=== PATIENT | female | born 1980 | race Two or more races ===

== ENCOUNTER 2019-05-19 23:55 | Inpatient (IN) | payer OTHER ==
[~2019-05-19] VITALS: Ht 152.4 cm; Wt 73.9 kg
[2019-05-20] MEDS ORDERED: RINGERS SOLUTION,LACTATED 1,000 ML IV PRN (01:04)
[2019-05-20] MEDS ORDERED: METOCLOPRAMIDE HCL 5 MG/ML 2 ML VIAL IVP PRN (01:15)
[2019-05-20] MEDS ORDERED: CITRIC ACID/SODIUM CITRATE 30 ML SOLUTION UDCUP PO PRN (01:15)
[2019-05-20] MEDS ORDERED: BETAMETHASONE SOLUSPAN 6 MG/ML 5 ML VIAL IM ONE ×2 (01:30→14:00)
[2019-05-20] MEDS: RINGERS SOLUTION,LACTATED 1,000 ML IV SCH ×6 (01:35→21:27)
[2019-05-20 01:48] VITALS: BP 103/61
[2019-05-20] MEDS: CLINDAMYCIN 900 MG/D5% WATER 50 ML IV SCH ×3 (02:01→17:59)
[2019-05-20 02:14] LABS: BASOPHILS % (AUTO) 0.5 % (0.0-2.0); EOSINOPHILS % (AUTO) 0.7 % (1.0-6.0); HEMATOCRIT 36.2 % (36-46); HEMOGLOBIN 12.4 g/dL (12.0-16.0); LYMPHOCYTES # (AUTO) 2.2 K/uL (1.0-4.8); LYMPHOCYTES % (AUTO) 20.9 % (22.0-44.0); MEAN CORPUSCULAR HEMOGLOBIN 31.1 pg (26.0-34.0); MEAN CORPUSCULAR HGB CONC 34.3 G/dL (31.0-37.0); MEAN CORPUSCULAR VOLUME 91 fL (80-100); MONOCYTES # (AUTO) 0.7 K/uL (0.1-1.0); NEUTROPHILS # (AUTO) 7.5 K/uL (1.8-7.7); NEUTROPHILS % (AUTO) 70.9 % (40.0-70.0); PLATELET COUNT (AUTO)-OB 223 K/uL (150-450); RED BLOOD CELL COUNT(AUTO) 3.99 MIL/uL (4.00-5.20)
[2019-05-20] MEDS ORDERED: MINERAL OIL 30 ML UDCUP VG ONE (04:00)
[2019-05-20] MEDS ORDERED: FentaNYL CITRATE-PF 100 MCG/2 ML VIAL IVP PRN (04:00)
[2019-05-20] MEDS ORDERED: PNV1TABL17 PO (04:22)
[2019-05-20] MEDS ORDERED: OXYGEN THERAPY IH SCH (08:00)
[2019-05-20] MEDS ORDERED: OXYTOCIN 30 UNITS/LACT RINGERS 500 ML IV PRN (10:00)
[2019-05-20] MEDS ORDERED: LIDOCAINE/PF 2% 5 ML VIAL ONE (10:55)
[2019-05-20] MEDS ORDERED: ROPIVACAINE HCL/PF 0.2% 100 ML ED ONE (10:55)
[2019-05-20] MEDS ORDERED: ONDANSETRON HCL 4 MG/2 ML VIAL IVP PRN (11:15)
[2019-05-20] MEDS ORDERED: ROPIVACAINE HCL/PF 0.2% 100 ML ED PRN (11:15)
[2019-05-20] MEDS ORDERED: NALBUPHINE HCL 10 MG/ML VIAL IVP PRN (11:15)
[2019-05-20] MEDS ORDERED: DiphenhydrAMINE HCL 50 MG/ML VIAL IVP PRN (11:15)
[2019-05-21] MEDS ORDERED: RINGERS SOLUTION,LACTATED 1,000 ML IV ONE (03:12)
[2019-05-21] MEDS ORDERED: GLYCERIN/WITCH HAZEL LEAF 40 PADS JAR TP PRN (03:15)
[2019-05-21] MEDS ORDERED: BENZOCAINE 20%/MENTHOL 56 GM SPRAY CANISTER TP PRN (03:15)
[2019-05-21] MEDS ORDERED: OxyCODONE HCL/ACETAMINOPHEN 5-325 MG TABLET PO PRN ×2 (03:15)
[2019-05-21] MEDS ORDERED: MEASLES/MUMPS/RUBELLA VACCINE, LIVE 0.5 ML/VIAL SQ ONE (03:15)
[2019-05-21] MEDS ORDERED: IBUPROFEN 600 MG TABLET PO PRN (03:15)
[2019-05-21] MEDS ORDERED: LANOLIN 7 GM OINTMENT TP PRN (03:15)
[2019-05-21] MEDS: MAGNESIUM HYDROXIDE SUSPENSION 30 ML UDCUP PO SCH (22:46)
[2019-05-22] MEDS: MAGNESIUM HYDROXIDE SUSPENSION 30 ML UDCUP PO SCH (09:44)
[2019-05-22] MEDS ORDERED: IBUP-2070 PO (11:32)
== END 2019-05-22 13:10 | disposition home or self-care (01) | DRG 807 ==
LOC: 4S 23:55 → OBSVTOIN 23:55
PROVIDERS: ADMIT Obstetrics & Gynecology; ATTEND Obstetrics & Gynecology
PROC: 10E0XZZ Delivery of Products of Conception, External Approach (ICD-10-PCS; principal; 2019-05-21)
PROC: 0HQ9XZZ Repair Perineum Skin, External Approach (ICD-10-PCS; 2019-05-21)
PROC: 3E0R3BZ Introduction of Anesthetic Agent into Spinal Canal, Percutaneous Approach (ICD-10-PCS; 2019-05-21)
PROC: 00HU33Z Insertion of Infusion Device into Spinal Canal, Percutaneous Approach (ICD-10-PCS; 2019-05-21)
DX: O42.913 Preterm premature rupture of membranes, unspecified as to length of time between rupture and onset of labor, third trimester (principal); Z37.0 Single live birth; O70.0 First degree perineal laceration during delivery; Z3A.36 36 weeks gestation of pregnancy
CPT/HCPCS: 76811; 86850; 86900; 86901; 89060; J0702; J2590; J2795; J3010; J3490; J7120